=== PATIENT | male | born 1960 | race American Indian/Alaskan Native ===

== ENCOUNTER 2017-10-11 21:03 | Emergency (ER) | payer SELFPAY ==
[2017-10-11] MEDS ORDERED: TYLENOL ONE (21:22)
[2017-10-11] MEDS ORDERED: MOTRIN ONE (21:24)
[2017-10-11] MEDS ORDERED: MOTRIN PO ONE (21:30)
[2017-10-12] MEDS ORDERED: FLEXERIL PO ONE (02:05)
[2017-10-12] MEDS ORDERED: PROVENTIL IH ONE (02:09)
[2017-10-12] MEDS ORDERED: DECADRON IV ONE (02:09)
[2017-10-12] MEDS ORDERED: NORVASC PO ONE (02:10)
--- NOTE | 2017-10-12 02:10 | Emergency Department Report ---
ED General Adult HPI - General Chief complaint: Neck Pain/Injury Stated complaint: SHOULDER & NECK PAIN LIGHT HEADED Time Seen by Provider: 10/12/17 02:05 Source: patient Mode of arrival: Ambulatory Limitations: No Limitations - History of Present Illness Initial comments: 56-year-old -[place] male comes in with complaint of left-sided neck pain that radiates to the left shoulder. Patient reports that this started 2 days ago. Patient reports that he woke up this morning with increased pain. He denies any injury to the neck he's been using Aspercreme for relief decreases the pain this a.m. now not working. Patient has also tried Tylenol without much relief. Patient denies any trauma to his neck or back or shoulder. Patient does report he has a chronic wheeze denies any shortness of breathing but does admit to lightheadedness. Patient denies any fever or chills no nausea no vomiting. He reports he is a diabetic and he takes his medication as prescribed. -: days(s) (2) Location: neck Radiation: distal (left shoulder) Severity scale (0 -10): 2 Quality: aching Consistency: constant Improves with: rest Worsens with: movement Associated Symptoms: cough. denies: diaphoresis, fever/chills, headaches, nausea/vomiting, shortness of breath Treatments Prior to Arrival: other (Tylenol and Aspercreme.) - Related Data Previous Rx's Medication Instructions Recorded Last Taken Type ALBUTEROL Inhaler [ProAir HFA 2 puff IH QID PRN #1 inhalation 10/12/17 Unknown Rx Inhaler] Cyclobenzaprine [Flexeril] 10 mg PO TID PRN #15 tablet 10/12/17 Unknown Rx Ibuprofen [Motrin 800 MG tab] 800 mg PO Q8HR PRN #30 tablet 10/12/17 Unknown Rx Allergies Allergy/AdvReac Type Severity Reaction Status Date / Time Penicillins Allergy Swelling Verified 10/11/17 21:41 ED Review of Systems ROS: Stated complaint: SHOULDER & NECK PAIN LIGHT HEADED Other details as noted in HPI Constitutional: denies: chills, fever Eyes: denies: eye pain, eye discharge, vision change ENT: denies: ear pain, throat pain Respiratory: cough Cardiovascular: denies: chest pain, palpitations Endocrine: no symptoms reported Gastrointestinal: denies: abdominal pain, nausea, diarrhea Genitourinary: denies: urgency, dysuria Musculoskeletal: arthralgia (neck pain) Neurological: denies: headache, weakness, paresthesias Psychiatric: denies: anxiety, depression ED Past Medical Hx - Past Medical History Previous Medical History?: Yes Hx Diabetes: Yes - Surgical History Past Surgical History?: No - Social History Smoking Status: Current Every Day Smoker Substance Use Type: None - Medications Home Medications: Home Medications Medication Instructions Recorded Confirmed Last Taken Type ALBUTEROL Inhaler [ProAir HFA 2 puff IH QID PRN #1 inhalation 10/12/17 Unknown Rx Inhaler] Cyclobenzaprine [Flexeril] 10 mg PO TID PRN #15 tablet 10/12/17 Unknown Rx Ibuprofen [Motrin 800 MG tab] 800 mg PO Q8HR PRN #30 tablet 10/12/17 Unknown Rx ED Physical Exam - General Limitations: No Limitations General appearance: alert, in no apparent distress - Head Head exam: Present: atraumatic, normocephalic - Eye Eye exam: Present: normal appearance - ENT ENT exam: Present: mucous membranes dry - Neck Neck exam: Present: tenderness (tenderness to the left sternocleidomastoid muscle), full ROM. Absent: meningismus, lymphadenopathy, thyromegaly - Respiratory Respiratory exam: Present: wheezes (right upper and right middle lobe) - Cardiovascular Cardiovascular Exam: Present: regular rate, normal rhythm. Absent: systolic murmur, diastolic murmur, rubs, gallop - GI/Abdominal GI/Abdominal exam: Present: soft, normal bowel sounds - Extremities Exam Extremities exam: Present: normal inspection - Back Exam Back exam: Present: normal inspection - Neurological Exam Neurological exam: Present: alert, oriented X3 - Psychiatric Psychiatric exam: Present: normal affect, normal mood ED Course Vital Signs 10/11/17 10/11/17 10/12/17 21:18 21:35 02:39 Temperature 98.4 F Pulse Rate 92 H Pulse Rate [ 77 Anterior Bilateral Throughout] Respiratory 18 18 Rate Respiratory 18 Rate [Anterior Bilateral Throughout] Blood Pressure 183/98 Blood Pressure [Right] O2 Sat by Pulse 99 Oximetry 10/12/17 10/12/17 02:43 02:44 Temperature Pulse Rate 94 H Pulse Rate [ Anterior Bilateral Throughout] Respiratory 18 Rate Respiratory Rate [Anterior Bilateral Throughout] Blood Pressure 166/99 Blood Pressure 166/99 [Right] O2 Sat by Pulse 98 Oximetry ED Medical Decision Making - Lab Data Result diagrams: 10/12/17 02:15 10/12/17 02:15 - Medical Decision Making Patient has been evaluated by this provider fast track. Patient has no trauma complains of right shoulder pain onset 2 days.. Patient was given Flexeril ibuprofen and steroids. Was noted on examination patient was wheezing to the right long he was given albuterol treatment. We would discharge patient on ibuprofen, Flexeril and have him follow up with the community provider. Critical care attestation.: If time is entered above; I have spent that time in minutes in the direct care of this critically ill patient, excluding procedure time. ED Disposition Clinical Impression: Neck pain on left side, Wheezing on auscultation Disposition: TO HOME OR SELFCARE Is pt being admited?: No Does the pt Need Aspirin: No Condition: Stable Instructions: Cervical Radiculopathy (ED) Additional Instructions: Please take pain medication as prescribed. Follow up with her primary care provider if symptoms persist or gets worse. Prescriptions: ALBUTEROL Inhaler [ProAir HFA Inhaler] 2 puff IH QID PRN #1 inhalation PRN Reason: Shortness Of Breath Cyclobenzaprine [Flexeril] 10 mg PO TID PRN #15 tablet PRN Reason: Muscle Spasm Ibuprofen [Motrin 800 MG tab] 800 mg PO Q8HR PRN #30 tablet PRN Reason: Pain Referrals: PRIMARY CARE, [Primary Care Provider] - 3-5 Days [facility] [Provider Group] - 3-5 Days
[2017-10-12 02:29] LABS: Basophils # (Auto) 0.1 K/mm3 (0.0-0.1); Basophils % (Auto) 0.5 % (0.0-1.8); Eosinophils # (Auto) 0.2 K/mm3 (0.0-0.4); Eosinophils % (Auto) 1.3 % (0.0-4.3); Hematocrit 41.1 % (35.5-45.6); Hemoglobin 13.8 gm/dl (11.8-15.2); Lymphocytes # (Auto) 1.7 K/mm3 (1.2-5.4); Lymphocytes % (Auto) 13.2 % (13.4-35.0); Mean Corpuscular HGB Conc 34 % (32-34); Mean Corpuscular Hemoglobin 27 pg (28-32); Mean Corpuscular Volume 79 fl (84-94); Monocytes # (Auto) 1.7 K/mm3 (0.0-0.8); Monocytes % (Auto) 13.5 % (0.0-7.3); Platelet Count 219 K/mm3 (140-440); Red Blood Count 5.22 M/mm3 (3.65-5.03); Red Cell Distribution Width 15.2 % (13.2-15.2)
[2017-10-12 02:44] VITALS: BP 166/99
[2017-10-12 02:47] LABS: Alanine Aminotransferase 18 units/L (7-56); Albumin 3.9 g/dL (3.9-5); BUN/Creatinine Ratio 17; Blood Urea Nitrogen 12 mg/dL (9-20); Calcium 9.4 mg/dL (8.4-10.2); Hemolysis Index 67
== END 2017-10-12 06:23 | disposition home or self-care (01) ==
LOC: ED 21:03
DX: M54.2 Cervicalgia (principal); R06.2 Wheezing; R05 Cough; E11.9 Type 2 diabetes mellitus without complications; F17.200 Nicotine dependence, unspecified, uncomplicated; Z88.0 Allergy status to penicillin
CPT/HCPCS: 36415; 80053; 85025; 94640; 96374; 99283; J1100